=== PATIENT | female | born 1965 | race Caucasian/White ===

== ENCOUNTER 2022-06-16 06:55 | Day surgery (SDC) | payer OTHER ==
--- NOTE | 2022-06-14 17:03 | RAD REPORT ---
EXAM DESCRIPTION: Karli Flores (2 Views)06/14/2022 4:58 pm CLINICAL HISTORY: Preop hernia surgery. Hypertension COMPARISON: 2016 FINDINGS: The lungs appear clear of acute infiltrate. The heart is normal size. Postsurgical changes involve the chest IMPRESSION: No acute abnormalities displayed
[2022-06-14 17:05] LABS: Absolute Lymphocytes (CBC) 1.7 K/uL (0.7-4.9); Hematocrit 41.9 % (36.0-45.0); Lymphocytes % 27.6 % (15.3-44.8); MCV 96.4 fL (80-100); MPV 7.1 fL (7.6-11.3); RBC Red Blood Cell Count 4.34 M/uL (3.86-4.86)
--- NOTE | 2022-06-15 08:38 | EKG ---
Test Date: 2022-06-14 Test Time: 16:18:09 [place] Repairer: AMISHA MEASUREMENT RESULTS: Intervals: Rate: 49 UT: 178 QRSD: 78 QT: 412 QTc: 372 [place]: P: 66 UT: 178 QRS: 76 T: 78 INTERPRETIVE STATEMENTS: Marked sinus bradycardia Abnormal ECG Compared to ECG 10/05/2015 20:05:59 Sinus rhythm no longer present Electronically Signed On 06-15-22 08:34:42 SOFTWARE DEVELOPER by Yahir Figueroa
[2022-06-16] MEDS ORDERED: propofoL 200 MG/20 ML VIAL IV ONE (07:03)
[2022-06-16] MEDS ORDERED: dexAMETHasone 10 MG/ML VIAL ONE (07:04)
[2022-06-16] MEDS ORDERED: ONDANSETRON 4 MG/2 ML VIAL ONE (07:04)
[2022-06-16] MEDS ORDERED: LIDOCAINE 2% MPF 5 ML VIAL ONE (07:04)
[2022-06-16] MEDS ORDERED: MIDAZOLAM HCL 2 MG/2 ML INJ ONE (07:04)
[2022-06-16] MEDS ORDERED: FENTANYL CITR 100 MCG/2 ML ONE (07:04)
[2022-06-16] MEDS ORDERED: Ringers Lactate 1,000 ML IV ONE (07:24)
[2022-06-16] MEDS ORDERED: CIPROFLOXACIN 400mg IV 400 MG/200 ML BAG IV ONE (07:34)
[2022-06-16] MEDS ORDERED: ACETAMINOPHEN 500 MG TAB ONE (07:40)
[2022-06-16] MEDS ORDERED: CELECOXIB 100 MG CAPSULE ONE (07:40)
[2022-06-16] MEDS ORDERED: KETOROLAC 30 MG/ML INJ ONE (08:10)
[2022-06-16] MEDS ORDERED: ROCURONIUM 50 MG/5 ML VIAL IV ONE (08:13)
--- NOTE | 2022-06-16 08:32 | P.BOP ---
Preoperative diagnosis: tender reducible right inguinal hernia Postoperative diagnosis: same Primary procedure: Open repair of tender reducible right inguinal hernia with mesh Estimated blood loss: <10cc Specimen: none Findings: reducible right inguinal hernia Anesthesia: General Complications: None Implants: mesh plug and sheet Transferred to: Recovery Room Condition: Good
[2022-06-16 09:31] VITALS: BP 115/66; TEMP 97.5; O2SAT 99
[2022-06-16] MEDS ORDERED: HYDROCODONE/APAP 7.5/325 MG TAB ONE (09:47)
--- NOTE | 2022-06-16 19:37 | DS ---
Date of Discharge: 06/16/2022 Diagnosis: Tender reducible right inguinal hernia. Procedure: Open repair of tender reducible right inguinal hernia with mesh. Disposition: Home. Activity: As tolerated. No heavy lifting. Follow Up: In my office in 1 week. Call for appointment at [phone]. Keep area dry for 48 hours and then may shower. Keep Steri-Strips intact. MARGIE/CARITO Voice ID: [id number] Report ID: [id number]
--- NOTE | 2022-06-16 19:37 | OP ---
Date of Procedure: 06/16/2022 Surgeon: David Lau MD Preoperative Diagnosis: Tender reducible right inguinal hernia. Postoperative Diagnosis: Tender reducible right inguinal hernia. Procedure: Open repair of tender reducible right inguinal hernia with mesh. Estimated Blood Loss: Less than 10 cc. Findings: Reducible right inguinal hernia. Anesthesia: General plus local. Complications: None. Implant: A mesh plug and sheet. Indications: This is the case of a female who comes to us with above diagnoses. Fully explained the benefits, alternatives, and risks of right inguinal hernia repair with mesh, which include, but are not limited to infection, bleeding, damage to adjacent structures, anesthesia complication, recurrenc e, chronic pain, chronic numbness, GA, and even . She also understands this may not relieve her symptoms and she might need more than one surgical intervention. She understood, signed a consent. She also was explained pros and cons of mesh placement and all the questions were answered to her sa tisfaction. Procedure In Detail: The patient was brought to the operating room and placed in supine position. A nesthesia was given without complication. A time-out was called. Right inguinal area was prepped an d draped in a sterile fashion. Local anesthesia was applied followed by sharp incision of the skin i n the right inguinal region. Patient has a large Pfannenstiel incision so we tried to stay below elsy t area. Incision was carried down to [place] fascia, which was opened under direct vision and externa l oblique aponeurosis was opened in direction of the fibers to connect to the superficial inguinal ri ng. The ilioinguinal nerve and iliohypogastric nerve were identified and protected behind external o blique aponeurosis. We noticed the defect coming from the deep inguinal ring. The tissue coming thr ough was carefully reduced back into the abdominal cavity and the mesh plug was placed in that area s ecuring that to the surrounding tissue with the help of VersaTack. After that, a mesh sheath was bakari babak in the floor of the canal securing that to the shelving edge of inguinal ligament, pubic tubercle , and transversalis fascia. After that, no more hernia was seen at this moment. I irrigated the are a with some local anesthetic, then closed the external oblique aponeurosis after putting nerve back i nto the inguinal canal and making sure when we closed the external oblique aponeurosis that we do not include the nerve. The area was irrigated. The [place] fascia closed with 3-0 chromic and skin appr oximated with 4-0 PDS. The patient tolerated the procedure well. Sponge count and instrument counts were correct. Patient was sent to recovery in stable condition. MARGIE/CARITO Voice ID: [id number] Report ID: [id number]
== END 2022-06-16 10:20 | disposition home or self-care (01) ==
LOC: OR 06:55
PROVIDERS: ATTEND Surgery
PROC: 0YU50JZ Supplement Right Inguinal Region with Synthetic Substitute, Open Approach (ICD-10-PCS; principal; 2022-06-16 08:00)
DX: K40.90 Unilateral inguinal hernia, without obstruction or gangrene, not specified as recurrent (principal); I10 Essential (primary) hypertension; Z85.3 Personal history of malignant neoplasm of breast
CPT/HCPCS: 93005; 85025; 80048; 36415; 71046; 49505; J2704; J2001; J2250; J3010; J1100; J7120; J2405; J0744